=== PATIENT | female | born 1945 | race Caucasian/White ===

== ENCOUNTER 2018-05-12 12:36 | Inpatient (IN) | payer MEDICARE, MEDICAID ==
[~2018-05-12] VITALS: Ht 152.4 cm; Wt 56.2 kg
[2018-05-12 12:38] VITALS: BP 155/87
[2018-05-12] MEDS ORDERED: OMEPRAZOLE40 MG PO (12:39)
[2018-05-12] MEDS ORDERED: VITAMIN B-1100 M1 PO (12:40)
[2018-05-12] MEDS ORDERED: NORVASC2.5 MG PO (12:40)
[2018-05-12] MEDS ORDERED: VITAMIN D1000 UNI1 PO (12:40)
[2018-05-12] MEDS ORDERED: ASPIRIN81 M2 PO (12:40)
[2018-05-12] MEDS ORDERED: LASIX 40 MG TAB40 M2 PO (12:41)
[2018-05-12] MEDS ORDERED: NITROGLYCERIN0.4 MG SUBLING (12:41)
[2018-05-12] MEDS ORDERED: TYLENOL325 MG PO (12:42)
[2018-05-12] MEDS ORDERED: TRAMADOL 50 MG50 MG PO (12:42)
[2018-05-12] MEDS ORDERED: FLEXERIL PO (12:44)
[2018-05-12] MEDS ORDERED: FLONASE 0.05%50 MCG NASAL (12:45)
[2018-05-12] MEDS ORDERED: MUCINEX600 MG PO ×2 (12:45→12:48)
[2018-05-12] MEDS ORDERED: MIRALAX17 GM PO (12:45)
[2018-05-12] MEDS ORDERED: SINGULAIR 10 MG10 M1 PO (12:46)
[2018-05-12] MEDS ORDERED: DONEPEZIL HCL10 M1 PO (12:46)
[2018-05-12] MEDS ORDERED: LISINOPRIL5 MG PO ×2 (12:46)
[2018-05-12] MEDS ORDERED: ZANAFLEX2 MG PO (12:47)
[2018-05-12] MEDS ORDERED: PEPCID20 MG PO (12:47)
[2018-05-12] MEDS ORDERED: ARICEPT 5 MG TAB5 MG PO (12:47)
[2018-05-12] MEDS ORDERED: SYMBICORT160 MCG/4. INH (12:48)
[2018-05-12] MEDS ORDERED: KLOR-CON 1010 MEQ PO (12:48)
[2018-05-12] MEDS ORDERED: TUSSIN MUC100 MG/5 M PO (12:49)
[2018-05-12] MEDS ORDERED: CEFDINIR300 MG PO (12:49)
[2018-05-12] MEDS ORDERED: DUONEB (12:50)
[2018-05-12 13:06] LABS: HEMATOCRIT 40.9 % (37.0-47.0); HEMOGLOBIN 13.4 gm/dL (12.0-15.0); MCH 26.5 pg (26.0-34.0); MCHC 32.8 g/dL (28.0-37.0); MCV 80.9 fL (80.0-100.0); NUCLEATED RBCS 0 /100WBC; PLATELET COUNT* 189 thou/uL (150-400); RBC 5.06 mil/uL (4.20-5.00); RDW-CV 16.8 % (10.5-14.5); WBC 22.3 thou/uL (4.0-11.0)
[2018-05-12 13:16] LABS: PROTIME 10.3 Seconds (9.20-11.50)
[2018-05-12 13:26] LABS: URINE BILIRUBIN NEGATIVE (Negative); URINE BLOOD 1+ (Negative); URINE CLARITY SL CLOUDY; URINE COLOR YELLOW; URINE GLUCOSE-RANDOM NEGATIVE (Negative); URINE KETONES 1+ (Negative); URINE PROTEIN TRACE (Negative); URINE SPECIFIC GRAVITY 1.015 (1.005-1.030); URINE UROBILINOGEN 0.2 E.U./dl (0.2-1.0)
[2018-05-12 13:33] LABS: URINE LEUKOCYTES-REFLEX 3+ (Negative); URINE NITRITE-REFLEX POSITIVE (Negative)
[2018-05-12 13:33] LABS: ANION GAP 8 mmol/L (7-16); BUN 17 mg/dL (7-18); CALCIUM 8.6 mg/dL (8.5-10.1); CHLORIDE 99 mmol/L (98-107); CO2 27 mmol/L (21-32); GLUCOSE 109 mg/dL (70-99); POTASSIUM 4.2 mmol/L (3.5-5.1); SODIUM 134 mmol/L (136-145)
--- NOTE | 2018-05-12 13:35 | EKG ---
[place] [address] ELECTROCARDIOGRAM REPORT Name: IRASEMA SLOAN Room: [facility]#: [id number] Admission: 05/12/18 Attend Phys: Discharge: Date of : 45 Report #: [id number] THIS REPORT FOR: //name// [facility] ED Test Date: 2018-05-12 Test Time: 12:44:37 Pat Name: IRASEMAChiquis SLOAN Department: Room: Gender: F Staff Pharmacist: ROLAND : 1945 Requested By: Bossman Duran Order Number: [id number] MD: John Cyr Measurements Intervals [place] Rate: 145 P: 63 WV: 128 QRS: -51 QRSD: 74 T: 37 QT: 279 QTc: 434 Interpretive Statements Sinus tachycardia LAE, consider biatrial enlargement Left anterior fascicular block Abnormal R-wave progression, late transition ST depression, probably rate related No previous ECG available for comparison Electronically Signed On 05-12-2018 13:35:10 SURVEILLANCE MONITOR by John Cyr [email or web address] <ELECTRONICALLY SIGNED> By: John Cyr MD, [facility] 05/12/18 1335 1244 43 John Cyr MD, FAC /EPI
[2018-05-12 13:49] LABS: ALKALINE PHOSPHATASE 1012 U/L (46-116); LIPASE 70 U/L (73-393); NT-PRO BRAIN NAT PEPTIDE 460 pg/mL (<300); SGOT 52 U/L (15-37); SGPT 69 U/L (30-65); TOTAL BILIRUBIN 0.7 mg/dL (<0.1-1.0); TOTAL PROTEIN 6.5 g/dL (6.4-8.2); TROPONIN-I LEVEL <0.06 ng/mL (<0.06)
[2018-05-12 14:00] LABS: INFLUENZA A ANTIGEN None Detected (None Detect); INFLUENZA B ANTIGEN None Detected (None Detect)
[2018-05-12 14:13] LABS: SQUAMOUS 0-3 Few /LPF (0-3); URINE WBC-REFLEX >25 Many /HPF (0-5)
[2018-05-12 14:14] LABS: BACTERIA-REFLEX >30 Many /HPF (None Seen); CASTS None Seen /LPF (None Seen); CRYSTALS None Seen /LPF (None Seen); MUCUS None Seen strn/LPF (None Seen); URINE RBC 3-10 Few /HPF (0-2)
[2018-05-12 14:16] LABS: TRANSITIONAL EPITHEL CELL 0-3 Few /LPF (None Seen)
[2018-05-12 14:51] LABS: ABSOLUTE LYMPHOCYTES 2.7 thou/uL (0.8-5.3); ABSOLUTE MONOCYTES 0.4 thou/uL (0.0-1.2); ABSOLUTE NEUTROPHILS 19.2 thou/uL (1.6-8.1); ATYPICAL LYMPHS 1 %; GIANT PLATELETS RARE; METAMYELOCYTES 4 %; PLATELET ESTIMATE ADEQUATE
[2018-05-12 14:52] LABS: MICROCYTES 1+
[2018-05-12 14:53] LABS: POIKILOCYTOSIS Occasional
[2018-05-12 14:54] LABS: CLUMPED PLTS RARE; HYPOCHROMASIA Occasional
[2018-05-12 16:00] VITALS: BP 133/57
[2018-05-12 19:30] VITALS: BP 119/56
[2018-05-13] VITALS: BP 133/65
[2018-05-13 04:00] VITALS: BP 151/52
[2018-05-13 07:48] LABS: HEMATOCRIT 36.7 % (37.0-47.0); HEMOGLOBIN 11.7 gm/dL (12.0-15.0); MCH 26.4 pg (26.0-34.0); MCHC 31.9 g/dL (28.0-37.0); MCV 82.7 fL (80.0-100.0); MPV 8.9 fl. (7.2-11.1); NUCLEATED RBCS 0 /100WBC; PLATELET COUNT* 152 thou/uL (150-400); RBC 4.44 mil/uL (4.20-5.00); RDW-CV 17.7 % (10.5-14.5); WBC 23.1 thou/uL (4.0-11.0)
[2018-05-13 07:52] LABS: CALCIUM 7.6 mg/dL (8.5-10.1); CREATININE 0.9 mg/dL (0.6-1.3); POTASSIUM 3.8 mmol/L (3.5-5.1)
[2018-05-13 08:00] VITALS: BP 165/65
--- NOTE | 2018-05-13 08:18 | CON ---
[address] [address] CONSULTATION Name: IRASEMA SLOAN Room: [address] IN M.R.#: [id number] Admission: 05/12/18 Attend Phys: Neeta Cardoso Discharge: Date of : 45 Report #: [id number] THIS REPORT FOR: //name// CC: John Gambino DATE OF SERVICE: 05/12/2018 ATTENDING PHYSICIAN: Don Gambino DO. REASON FOR EVALUATION: Septicemia, complicated urinary tract infection. HISTORY OF PRESENT ILLNESS: Chart reviewed, patient examined. He was admitted to the Emergency Room from facility with complaints of profound encephalopathy. She apparently was known to be fairly normal mentation 2 hours prior. She is not able to give whole lot details of history. Appears to have some degree of fevers and chills. She does have back pain, although this has been chronic. She intermittently has poor appetite. Denies any nausea or diarrhea at this point. Per report, she was recently diagnosed with bronchitis, although it is noted she was not taking her antibiotics or other medicines, having found them behind her bed. She is at least moderately encephalopathic at this point. The evaluation did show marked pyuria. Chest x-ray showed no acute process. Influenza antigen for A and B was negative. White count was elevated at 22.3. She has been started empirically on vancomycin, levofloxacin. ALLERGIES: No known medical allergies. HOME MEDICATIONS: Include omeprazole, aspirin, amlodipine, cholecalciferol, thiamine, furosemide, nitroglycerin, acetaminophen, tramadol, cyclobenzaprine, fluticasone, guaifenesin, montelukast, lisinopril, donepezil, famotidine, tizanidine, budesonide. PAST MEDICAL HISTORY: Includes hypertension, history of coronary artery disease, chronic back pain. SOCIAL HISTORY: Disabled. FAMILY HISTORY: Noncontributory. REVIEW OF SYSTEMS: Somewhat limited, 10-point review of systems otherwise unremarkable with the exception noted in the history of present illness. PHYSICAL EXAMINATION: GENERAL: She appears chronically ill, undernourished. She is mildly encephalopathic. She does seem to be more lucid than earlier today. She is in [id number] [address] CONSULTATION Name: IRASEMA SLOAN Room: [address]#: [id number] Admission: 05/12/18 Attend Phys: Neeta Cardoso Discharge: Date of : 45 Report #: [id number] HEENT: Normocephalic. Extraocular muscles intact. She has got poor dentition. NECK: Supple. LUNGS: Scattered coarse breath sounds. HEART: Regular. I do not appreciate any murmur. ABDOMEN: Soft, nontender. There are no peritoneal signs. GENITOURINARY: Deferred. RECTAL: Deferred. LABORATORY DATA: Lactic acid 1.7. Chest x-ray shows some chronic changes, no acute process. Electrolytes: Sodium 134, potassium 4.2, chloride 99, bicarbonate is 27, BUN and creatinine 17 and 1.0, glucose of 109. AST 52, ALT of 69, alkaline phosphatase elevated at 1012. Lipase 70, albumin 3, total protein 6.5. Estimated GFR 54. Influenza antigen was negative. Urinalysis White count microscopic was greater than 25, greater than 30 bacteria. CBC: White count 22.7, H and H 13.4 and 40.9, platelets of 189, neutrophilia. ASSESSMENT AND PLAN: Complicated urinary tract infection. I suspect pyelonephritis. There is some indication may have positive blood cultures, although I have not been able to find documentation. These would have been drawn at the facility. We will try to get those results. At this point, there is no evidence of pneumonitis. She was recently diagnosed with bronchitis. I think a combination therapy should be adequate. Does have markedly elevated alkaline phosphatase. We will go ahead and do an ultrasound of the biliary tract to define what exactly that represents. Did discuss with the patient and her daughter. <ELECTRONICALLY SIGNED> By: Nick Powell MD 05/13/18 0818 1636 [id number] Powell MD /nt
[2018-05-13 08:47] LABS: ABSOLUTE LYMPHOCYTES 1.4 thou/uL (0.8-5.3); ABSOLUTE MONOCYTES 0.9 thou/uL (0.0-1.2); ABSOLUTE NEUTROPHILS 20.8 thou/uL (1.6-8.1); ATYPICAL LYMPHS 1 %; METAMYELOCYTES 1 %; PLATELET ESTIMATE ADEQUATE
[2018-05-13 12:00] VITALS: BP 125/65
[2018-05-13 16:00] VITALS: BP 125/59
[2018-05-14] VITALS: BP 130/67
[2018-05-14 04:00] VITALS: BP 169/75
[2018-05-14 08:00] VITALS: BP 188/77
[2018-05-14 10:07] LABS: HEMOGLOBIN 12.9 gm/dL (12.0-15.0); MCH 26.8 pg (26.0-34.0); MCV 81.1 fL (80.0-100.0); MPV 9.5 fl. (7.2-11.1); NUCLEATED RBCS 0 /100WBC; PLATELET COUNT* 178 thou/uL (150-400); RBC 4.81 mil/uL (4.20-5.00); RDW-CV 17.2 % (10.5-14.5); WBC 14.4 thou/uL (4.0-11.0)
[2018-05-14 10:20] LABS: CALCIUM 8.5 mg/dL (8.5-10.1); CREATININE 0.8 mg/dL (0.6-1.3); POTASSIUM 3.5 mmol/L (3.5-5.1)
[2018-05-14 11:15] LABS: ABSOLUTE LYMPHOCYTES 1.6 thou/uL (0.8-5.3); ABSOLUTE MONOCYTES 1.6 thou/uL (0.0-1.2); ABSOLUTE NEUTROPHILS 11.2 thou/uL (1.6-8.1); ANISOCYTOSIS 1+; PLATELET ESTIMATE ADEQUATE; POIKILOCYTOSIS 1+
[2018-05-14 11:30] VITALS: BP 138/66
[2018-05-14 15:57] VITALS: BP 146/69
[2018-05-14 20:00] VITALS: BP 164/80
[2018-05-15] VITALS: BP 159/73
[2018-05-15 04:00] VITALS: BP 115/76
[2018-05-15 08:00] VITALS: BP 187/77
[2018-05-15] MEDS ORDERED: CEFDINIR300 MG PO (08:58)
[2018-05-15 11:22] VITALS: BP 144/79
[2018-05-15 16:00] VITALS: BP 130/69
[2018-05-15 19:10] VITALS: BP 122/65
[2018-05-16] VITALS: BP 135/67
[2018-05-16 04:00] VITALS: BP 117/65
[2018-05-16 08:29] LABS: HEMOGLOBIN 12.4 gm/dL (12.0-15.0); MCH 26.9 pg (26.0-34.0); MCHC 33.5 g/dL (28.0-37.0); MCV 80.3 fL (80.0-100.0); MPV 9.1 fl. (7.2-11.1); NUCLEATED RBCS 0 /100WBC; PLATELET COUNT* 191 thou/uL (150-400); RBC 4.61 mil/uL (4.20-5.00); RDW-CV 16.6 % (10.5-14.5); WBC 8.3 thou/uL (4.0-11.0)
[2018-05-16 08:41] LABS: ALBUMIN 2.1 g/dL (3.4-5.0); CALCIUM 8.4 mg/dL (8.5-10.1); CREATININE 0.8 mg/dL (0.6-1.3); POTASSIUM 3.5 mmol/L (3.5-5.1); TOTAL BILIRUBIN 0.7 mg/dL (<0.1-1.0); TOTAL PROTEIN 5.7 g/dL (6.4-8.2)
[2018-05-16 08:50] VITALS: BP 118/56
[2018-05-16 09:29] LABS: ABSOLUTE LYMPHOCYTES 1.2 thou/uL (0.8-5.3); ABSOLUTE MONOCYTES 1.5 thou/uL (0.0-1.2); ABSOLUTE NEUTROPHILS 5.6 thou/uL (1.6-8.1); ATYPICAL LYMPHS 6 %; METAMYELOCYTES 2 %
[2018-05-16 09:32] LABS: PLATELET ESTIMATE ADEQUATE
[2018-05-16 12:17] VITALS: BP 127/55
[2018-05-16 16:25] VITALS: BP 114/56
[2018-05-16 19:15] VITALS: BP 136/70
[2018-05-17] VITALS: BP 143/56
[2018-05-17 04:00] VITALS: BP 130/61
[2018-05-17 13:06] VITALS: BP 106/58
[2018-05-17] MEDS ORDERED: CEFDINIR300 MG PO (15:25)
[2018-05-17] MEDS ORDERED: LEVAQUIN 750 M750 MG PO (15:28)
[2018-05-17 15:30] VITALS: BP 106/58
== END 2018-05-17 16:30 | DRG 871 ==
LOC: M.ERS 12:36 → M.TBA-ER 13:44 → M.2W 13:44
PROVIDERS: Family Medicine; Internal Medicine; ADMIT Internal Medicine
DX: A41.9 Sepsis, unspecified organism (principal); G93.41 Metabolic encephalopathy; J18.9 Pneumonia, unspecified organism; J96.01 Acute respiratory failure with hypoxia; N39.0 Urinary tract infection, site not specified; B96.5 Pseudomonas (aeruginosa) (mallei) (pseudomallei) as the cause of diseases classified elsewhere; I10 Essential (primary) hypertension; I25.10 Atherosclerotic heart disease of native coronary artery without angina pectoris; J40 Bronchitis, not specified as acute or chronic; M54.9 Dorsalgia, unspecified; M19.90 Unspecified osteoarthritis, unspecified site; R74.8 Abnormal levels of other serum enzymes; Z79.82 Long term (current) use of aspirin; Z79.899 Other long term (current) drug therapy; Z91.048 Other nonmedicinal substance allergy status

== ENCOUNTER 2018-06-12 08:06 | Inpatient (IN) | payer MEDICARE, MEDICAID ==
[~2018-06-12] VITALS: Ht 167.6 cm; Wt 66.0 kg
[~2018-06-12 08:06] MED LIST: ARICEPT 5 MG TAB5 MG PO; ASPIRIN81 M2 PO; CEFDINIR300 MG PO; DONEPEZIL HCL10 M1 PO; DUONEB; FLEXERIL PO; FLONASE 0.05%50 MCG NASAL; KLOR-CON 1010 MEQ PO; LASIX 40 MG TAB40 M2 PO; LEVAQUIN 750 M750 MG PO; LISINOPRIL5 MG PO; MIRALAX17 GM PO; MUCINEX600 MG PO; NITROGLYCERIN0.4 MG SUBLING; NORVASC2.5 MG PO; OMEPRAZOLE40 MG PO; PEPCID20 MG PO; SINGULAIR 10 MG10 M1 PO; SYMBICORT160 MCG/4. INH; TRAMADOL 50 MG50 MG PO; TUSSIN MUC100 MG/5 M PO; TYLENOL325 MG PO; VITAMIN B-1100 M1 PO; VITAMIN D1000 UNI1 PO; ZANAFLEX2 MG PO
[2018-06-12 08:10] VITALS: BP 142/74
[2018-06-12] MEDS ORDERED: SPIRONOLACTONE25 M1 PO (08:14)
[2018-06-12 08:53] LABS: HEMATOCRIT 43.1 % (37.0-47.0); MCHC 32.4 g/dL (28.0-37.0); MCV 80.3 fL (80.0-100.0); MPV 11.1 fl. (7.2-11.1); NUCLEATED RBCS 0 /100WBC; PLATELET COUNT* 125 thou/uL (150-400); RBC 5.37 mil/uL (4.20-5.00); RDW-CV 18.4 % (10.5-14.5); WBC 11.6 thou/uL (4.0-11.0)
[2018-06-12 09:03] LABS: APTT 21.8 Seconds (25.0-31.3); PROTIME 10.7 Seconds (9.20-11.50)
[2018-06-12 09:12] LABS: ALBUMIN 2.3 g/dL (3.4-5.0); ALKALINE PHOSPHATASE 851 U/L (46-116); ANION GAP 11 mmol/L (7-16); BUN 36 mg/dL (7-18); CALCIUM 8.5 mg/dL (8.5-10.1); CHLORIDE 101 mmol/L (98-107); CO2 25 mmol/L (21-32); CREATININE 1.4 mg/dL (0.6-1.3); GLUCOSE 127 mg/dL (70-99); LIPASE 54 U/L (73-393); MAGNESIUM 2.2 mg/dL (1.8-2.4); NT-PRO BRAIN NAT PEPTIDE 3026 pg/mL (<300); POTASSIUM 4.4 mmol/L (3.5-5.1); SGOT 58 U/L (15-37); SGPT 33 U/L (30-65); SODIUM 137 mmol/L (136-145); TOTAL BILIRUBIN 1.3 mg/dL (<0.1-1.0); TOTAL PROTEIN 5.4 g/dL (6.4-8.2); TROPONIN-I LEVEL <0.06 ng/mL (<0.06)
[2018-06-12 10:11] LABS: ABSOLUTE LYMPHOCYTES 0.8 thou/uL (0.8-5.3); ABSOLUTE NEUTROPHILS 9.7 thou/uL (1.6-8.1); HYPOCHROMASIA 1+; PLATELET ESTIMATE DECREASED
[2018-06-12 10:12] LABS: ANISOCYTOSIS 1+; POIKILOCYTOSIS 1+; POLYCHROMASIA Occasional; TARGET CELLS Occasional
--- NOTE | 2018-06-12 10:42 | NUR ---
PT TRANSFERRED FROM ER BED TO HOSPITAL BED
[2018-06-12 12:06] VITALS: BP 144/72
[2018-06-12 15:46] VITALS: BP 136/79
--- NOTE | 2018-06-12 19:04 | NUR ---
RECEIVED REPORT AND ASSUMED CARE AT 1255. PT TRANSPORTED FROM ED TO ROOM 230. VSS. PT MED SURGE. ASSESSMENT COMPLETED CHARTED. ADMISSION COMPLETED BY NURSING. PT ORIENTATED TO ROOM, CALL LIGHT, FALL POLICY. WOUND PICTURES TAKEN AND PLACED ON CHART. BED LOCKED IN LOWEST POSITION, CALL LIGHT WITHIN REACH, BED ALARM ON. POSITION CHANGED EVERY TWO HOURS, HEELS OFF LOADED BILATERALLY. HOURLY ROUNDING COMPLETED AND ALL NEEDS MET.
[2018-06-12 20:00] VITALS: BP 137/81
[2018-06-13] VITALS (53 sets, daily range): BP systolic 72–182; BP diastolic 20–120
--- NOTE | 2018-06-13 04:40 | NUR ---
PT ALERT FORGETFUL AT TIMES. IN DROPLET PRECAUTIONS FOR RSV 3 WKS AGO DX. SHIRAZ FOR WOUNDS TO LABIA ERIN LEGS AND L&R GREAT TOES. O2 AT 2 LITERS NC. BLOOD CLTS + FOR GRAM NEG RODS. DR AMANDA NOTIFIED. CEFIPIME ORDERED.
--- NOTE | 2018-06-13 06:07 | NUR ---
PT BECAME TACHYPNEIC WITH CRACKLES AND COURSE. DR BYERS NOTIFIED. DC IVF. STAT LASIX AND PCXRAY. IVF DC'D BMP ALREADY ORDERED.
--- NOTE | 2018-06-13 07:51 | CON ---
[address] [address] CONSULTATION Name: IRASEMA SLOAN Room: [address] IN M.R.#: [id number] Admission: 06/12/18 Attend Phys: Josué Dent MD Discharge: Date of : 45 Report #: [id number] THIS REPORT FOR: //name// CC: Josué Lucia DATE OF SERVICE: 06/12/2018 INFECTIOUS DISEASE CONSULTATION ATTENDING PHYSICIAN: Dr. Dent. REASON FOR EVALUATION: Pneumonitis. HISTORY OF PRESENT ILLNESS: Chart reviewed, patient examined. This is a 73-year-old woman known to myself, who was hospitalized in April of this year with septicemia secondary to complicated urinary tract infection due to Pseudomonas aeruginosa. Post-discharge, she was in a facility, had apparently been complaining about worsening dyspnea and the time prior to her transfer was found to have hypoxemia on 2 liters with low sats of 88%. She reportedly had a history of RSV recently. On questioning now, denies any shortness of breath. She does have a cough that appears to be somewhat coarse, although she denies feeling short of breath, saturations have been kind of marginal on 4 liters of oxygen. She denies significant abdominal related complaints. She has had some anorexia, poor p.o. intake and believes some weight loss in the past month. She has not had fevers that she is aware of. Evaluation including imaging of her chest, which showed question of pneumonitis. Lactic acid was elevated at 4.1 as well. She has been placed empirically on therapy with levofloxacin. ALLERGIES: None known. MEDICATIONS: Include Levaquin, spironolactone, furosemide, enoxaparin, famotidine, montelukast, Ipratropium/albuterol inhaler, methylprednisolone, cyclobenzaprine, tramadol, nitroglycerin. PAST MEDICAL HISTORY: Includes hypertension, atherosclerotic coronary artery disease, chronic back pain. SOCIAL AND FAMILY HISTORY: Available in chart. REVIEW OF SYSTEMS: Ten-point review of system otherwise unremarkable with the exception noted in the history of present illness. PHYSICAL EXAMINATION: GENERAL: She appears chronically ill. I think she has actually lost weight since previous hospitalization. Undernourished. She is pleasant, cooperative, [place] [address] CONSULTATION Name: MIRANDA SLOANChiquis Hernández Room: [address]#: [id number] Admission: 06/12/18 Attend Phys: Josué Dent MD Discharge: Date of : 45 Report #: [id number] perhaps mildly encephalopathic. VITAL SIGNS: Temperature 97.5, pulse 106, respiration rate 22, blood pressure 144/76, weight is listed as 140 pounds. SKIN: Warm. HEENT: Remarkable for poor dentition. Normocephalic. Extraocular muscles intact. NECK: Supple. LUNGS: Scattered coarse breath sounds. HEART: Regular. I do not appreciate a murmur. ABDOMEN: Soft, mildly distended. There is no significant tenderness nor peritoneal signs. GENITOURINARY AND RECTAL: Deferred. LABORATORY DATA: As described above. Lactic acid on 2 occasions 4.1. CBC: White count of 11.6, H and H 14.0/43.1, platelets of 125. Chest x-ray, left mid to lower lung opacities. Electrolytes: Sodium 137, potassium 4.4, chloride 101, bicarbonate is 25, anion gap of 11, BUN and creatinine 36 and 1.4, lipase of 54, AST of 58, ALT of 33. Albumin of 2.3, total protein of 5.4. ASSESSMENT AND PLAN: Pneumonitis. The patient likely has some degree of immunocompromise at this point. We will add some better Gram-positive coverage. There is question of a secondary bacterial pneumonitis in the setting of previous viral etiology. Also, we will check CT of the chest to better define, I am still concerned that she may have some underlying occult process that seems to be progressive given the weight loss and overall clinical deterioration. <ELECTRONICALLY SIGNED> By: Nick Powell MD 06/13/18 0751 1209 [id number] Powell MD /nt
[2018-06-13 09:25] LABS: BE -18.5 mmol/L (-2 to +3); PO2 107.1 mmHg (75.0-100.0)
--- NOTE | 2018-06-13 09:32 | EKG ---
[place] [address] ELECTROCARDIOGRAM REPORT Name: IRASEMA SLOAN Room: [address] ADM IN M.R.#: [id number] Admission: 06/12/18 Attend Phys: Josué Dent MD Discharge: Date of : 45 Report #: [id number] THIS REPORT FOR: //name// [facility] ED Test Date: 2018-06-12 Test Time: 08:11:12 Pat Name: IRASEMA LUTHER Department: Room: [facility] Gender: F Dag Sprayer: [place] BRIAN : 1945 Requested By: Bossman Duran Order Number: [id number] MD: John Cyr Measurements Intervals [place] Rate: 121 P: 51 DC: 142 QRS: -45 QRSD: 93 T: 115 QT: 309 QTc: 439 Interpretive Statements Sinus tachycardia Atrial premature complex Left anterior fascicular block Abnormal R-wave progression, early transition Borderline repolarization abnormality Compared to ECG 05/12/2018 12:44:37 Atrial premature complex(es) now present Electronically Signed On 06-13-2018 9:32:04 DISTANCE LEARNING PROGRAM COORDINATOR by John Cyr [email or web address] <ELECTRONICALLY SIGNED> By: John Cyr MD, FACC 06/13/18 0932 0 0 John Cyr MD, FAC /EPI
--- NOTE | 2018-06-13 10:13 | NUR ---
ASSUMED CARE OF PT THIS AM AROUND 0715- UPON ASSESSMENT PT NOTED TO BE RESTING IN BED- O2 SAT NOTED IN 50-60'S ON 2L VIA NC- O2 BUMPED UP TO 15L HF WITH IMPORVEMENT TO MID 80'S THEN FALLING IN MID 70'S- NRB APPLIED WITH O2 SAT 88-90%- NOTIFIED WITH ORDERS FOR 40MG LASIX X1- ABG'S, AND LACTIC - PCO2 CRITICAL AT 6.990, ORDERS RECIEVIED TO GIVEN SOLU-MED 62.5MG X1 AND TO TRANSFER TO ICU FOR INTUBATION- REPORT GIVEN TO ELLY WALTER IN ICU TO ASSUME CARE- PT TRANSFERED TO ROOM 103 WITH ALL BELONGINGS VIA BED- ALL QUESTIONS AND CONCERNS ADDRESSED
[2018-06-13 11:02] LABS: PCO2 56.4 mmHg (35.0-45.0)
[2018-06-13 13:43] LABS: BE -10.2 mmol/L (-2 to +3); PCO2 46.8 mmHg (35.0-45.0)
[2018-06-13 13:44] LABS: PO2 218.4 mmHg (75.0-100.0); pH 7.196 (7.340-7.450)
--- NOTE | 2018-06-13 14:36 | NUR ---
RIGHT BASILIC VESSEL ACCESSED FOR TRIPLE LUMEN PICC. LINE PRE-TRIMMED TO 37CM AND ADVANCED TO THE ZERO JORGE LUIS WITH NO REISISTANCE MET. UPPER ARM CIRCUMFERENCE ABOVE INSERTION SITE=10". SHERLOCK AND 3CG CONFIRMATION OF TIP TERMINATION AT THE CAVOATRIAL JUNCTION. GUIDEWIRE REMOVED, LINE FLUSHED AND REPORT GIVEN TO NIECY WALTER.
[2018-06-13 15:07] LABS: URINE BILIRUBIN NEGATIVE (Negative); URINE BLOOD 1+ (Negative); URINE CLARITY CLEAR; URINE COLOR YELLOW; URINE GLUCOSE-RANDOM NEGATIVE (Negative); URINE KETONES NEGATIVE (Negative); URINE LEUKOCYTES-REFLEX NEGATIVE (Negative); URINE NITRITE-REFLEX NEGATIVE (Negative); URINE PROTEIN TRACE (Negative); URINE SPECIFIC GRAVITY 1.025 (1.005-1.030); URINE UROBILINOGEN 0.2 E.U./dl (0.2-1.0)
[2018-06-13 15:08] LABS: CALCIUM 6.9 mg/dL (8.5-10.1); CREATININE 1.4 mg/dL (0.6-1.3); POTASSIUM 4.9 mmol/L (3.5-5.1)
--- NOTE | 2018-06-13 15:09 | NUR ---
WOUND CARE NOTE: CONSULT RECIEVED FOR MULTIPLE WOUNDS/BLACK TOES. PATIENT PRESENTS WITH DARK DISCOLORATION TO THE FIRST TOE ON THE LEFT FOOT AND 1-3RD TOES ON THE RIGHT. BILATERAL FEET ARE COLD TO TOUCH, MOTTLED. UNABLE TO PALPATE OR DOPPLE PEDAL PULSES, ARTERIAL ULTRASOUNDS ARE ORDERED. PAINTED THE DISCOLORATION WITH BETADINE AND ALLOWED TO DRY. PATIENT HAS EVOLVING DEEP TISSUE INJURY TO HER SACRAL AREA MEASURING 6X3X0.1. MOIST YELLOW WOUND BED TO APPROXIMATELY 75% OF WOUND BED. 25% OF WOUND BED MOIST, PINK, NON-GRANULAR TISSUE. APPLIED BARRIER OINTMENT WITH ANTIFUNGAL AT THIS TIME. POTENTIALLY A FUNGAL OR EVEN A HERPATIC COMPONENT. BILATERAL LABIA MAJORA, PERINEUM, AND CONSTANZA-ANAL AREA WITH FULL THICKNESS LESIONS. NUMEROUS SITES. PALE/YELLOW WOUND BEDS. FRIABLE TISSUE. DRAINING SANGUINEOUS DRAINAGE. TENDER TO TOUCH PATIENT PULLS AWAY DURING CLEANSING. OBTAINED HERPES CULTURES. APPLIED BARRIER OINTMENT WITH ANTIFUNGAL IN CASE OF FUNGAL COMPONENT WELL. RIGHT HEEL WITH DRY SCAB. NUMEROUS OTHER DRY LESIONS TO BILATERAL LEGS. RECOMMEND LEAVING OPEN TO AIR AT THIS TIME. RECOMMEND TURN Q2 HOURS-SIDE TO SIDE LOW AIR LOSS MATTRESS-IN PLACE OFFLOADING BOOTS LIMIT LAYERS OF LINEN UNDER PATIENT.
--- NOTE | 2018-06-13 15:35 | NUR ---
RECEIVED PATIENT FROM TELEMETRY UNIT DUE TO INCREASED RR WITH TROUBLE BREATHING. PATIENT PLACED ON BIPAP AND COULD NOT TOLERATE AND TRANSFERED TO THE ICU. UPON ARRIVAL IN ICU, PATIENT WAS INTUBATED. ON ASSESSMENT, PATIENT HAS COLD BLE WITH BLACK TOES. DOPPLER USED AND NO PULSES HEARD ON BLE - VASCULAR CONSULTED AND NOTIFIED. OFFICE RN ROUNDED ON PATIENT AND ASSISTED WITH WOUND CARE AND SUGGESTIONS. WITH SEDATION PATIENT BECAME HYPOTENSIVE AND HAD TO START LEVOPHED DRIP PER PHYSICIAN ORDERS. PATIENTS TEMPERATURE WAS 95.9F AND EXTREMITIES COOL TO THE TOUCH - GIRISH HUGGER APPLIED. FAMILY AT BEDSIDE - ASKING APPROPRIATE QUESTIONS AND UPDATED ON PATIENTS CONDITION. FAMILY REQUESTED TO SPEAK WITH DR. RENE - SPOKE WITH DR. RENE AND DR. PACE.
[2018-06-13 16:01] LABS: SQUAMOUS 0-3 Few /LPF (0-3)
[2018-06-13 16:02] LABS: URINE RBC None Seen /HPF (0-2); URINE WBC-REFLEX 0-5 Rare /HPF (0-5)
[2018-06-13 16:03] LABS: CASTS None Seen /LPF (None Seen); CRYSTALS None Seen /LPF (None Seen); MUCUS 0-3 Light strn/LPF (None Seen); YEAST-REFLEX Present (None Seen)
--- NOTE | 2018-06-13 16:15 | NUR ---
PT KNOWN TO CASE MGT FROM PREVIOUS ADMISSION. 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 PT TRANSFERRED TO ICU AND INTUBATED THIS MORNING. SPOKE WITH SALINA AT [facility] TO UPDATE HER ON PT'S CONDITION.
--- NOTE | 2018-06-13 18:48 | NUR ---
ASSUMED CARE OF PATIENT CT DONE LEVO AT 5 MCGS. REMAINS ON VENT. SODIUM ELEVATED FLUIDS CHANGED TO D5W WITH BICARB. FAMILY INFORMED OF PT CHANGES WILL CHECK ON PT IN AM.
[2018-06-13 21:23] LABS: BE -7.8 mmol/L (-2 to +3); PCO2 33.9 mmHg (35.0-45.0); PO2 88.9 mmHg (75.0-100.0); pH 7.324 (7.340-7.450)
[2018-06-14] VITALS (44 sets, daily range): BP systolic 44–151; BP diastolic 16–121
--- NOTE | 2018-06-14 06:20 | NUR ---
Pt limp, lethargic. BP labile even while on Levophed gtt; which has been titrated up and down during shift. BP ranging from 90s/20s to 160s/120s. RR mid- to upper-20s, and appear agonal. Toes bilat either black or dusky. Breath snds clear. HR 120s. Blood-tinged drainage leaking from LUE at AC space just below BP cuff. Just 250 ml urine per bob for shift. Pt appears frail and sickly, and not responding to painful stimuli. Will continue to monitor.
[2018-06-14 07:53] LABS: HEMATOCRIT 40.2 % (37.0-47.0); HEMOGLOBIN 12.3 gm/dL (12.0-15.0); MCH 25.7 pg (26.0-34.0); MCHC 30.5 g/dL (28.0-37.0); MCV 84.3 fL (80.0-100.0); MPV 10.7 fl. (7.2-11.1); NUCLEATED RBCS 1 /100WBC; PLATELET COUNT* 114 thou/uL (150-400); RBC 4.77 mil/uL (4.20-5.00); RDW-CV 19.2 % (10.5-14.5); WBC 26.6 thou/uL (4.0-11.0)
--- NOTE | 2018-06-14 07:55 | CON ---
[address] [address] CONSULTATION Name: LUTHERIRASEMA K Room: [address] ADM IN M.R.#: [id number] Admission: 06/12/18 Attend Phys: Josué Dent MD Discharge: Date of : 45 Report #: [id number] THIS REPORT FOR: //name// CC: Seth Lucia MD DATE OF SERVICE: 06/13/2018 PULMONARY CONSULTATION: ATTENDING PHYSICIAN: Dr. Seth Rao. The patient is now in the ICU bed 3. She was in room 230. INDICATION FOR CONSULTATION: Acute hypoxic respiratory failure, sepsis, metabolic acidosis, COPD. CLINICAL SUMMARY: The patient is a 73-year-old female, remote smoker with multiple medical problems. She was admitted to the hospital yesterday on 06/12/2018 with a history of being short of breath. Her O2 sats were a little bit low on 2 liters at the long-term. They were 85-88. She supposedly had a history of RSV infection recently, not really sure how well that is documented. She had increasing cough, shortness of air. She had increasing abdominal complaints. She had some poor discoloration of her toes, left greater than right and she was not perfusing well. She was started on 2 liters when she was in the hospital up on the floor then increased to 100% nonrebreather this morning. She had metabolic and respiratory acidosis, was transferred to the ICU. I saw her on BiPAP. She was doing poorly. We continued with the decision to get her intubated. She has markedly necrotic and carious teeth also. She denies any history of aspiration, but she is currently confused and encephalopathic from her infection. She has some cough and some purulent sputum. No definite fever or chills noted. IMMUNIZATION STATUS: Not noted. ALLERGIES: She has no known medical allergies, QUESTIONABLY TO ADHESIVE TAPE. PAST MEDICAL HISTORY: Includes hypertension, COPD. She has kyphosis and chronic back pain and atherosclerotic coronary artery disease. Also, has some peripheral vascular disease and bronchiectasis. OUTPATIENT MEDICATIONS: Included IV and p.o. Levaquin, spironolactone, furosemide, enoxaparin, famotidine, montelukast, DuoNeb treatments 4 [place] [address] CONSULTATION Name: IRASEMA SLOAN Room: [address] IN [facility]#: [id number] Admission: 06/12/18 Attend Phys: Josué Dent MD Discharge: Date of : 45 Report #: [id number] day, methylprednisolone 62.5 mg IV q. 8 hours, Soma q. 8 hours, tramadol 50 mg t.i.d., nitroglycerin p.r.n. She had one dose of vancomycin added here at this time. Bicarb was ordered and has not been given yet. FAMILY HISTORY: Negative for premature cardiopulmonary disease. SOCIAL HISTORY: She lives in a long-term. She is a remote smoker. Her daughter, Issac, is the durable power of business attorney. She has about a 30- or 40-pack year history of smoking. She quit several years ago. She denies any alcohol or illicit drug use. REVIEW OF SYSTEMS: A 14-point review of systems shows some complicated urinary tract infections previously with Pseudomonas aeruginosa. No recent urinary tract infections noted. Again, hypertension, coronary artery disease as noted. She has had chronic back pain with her kyphoscoliosis and 3 back surgeries in the past. PHYSICAL EXAMINATION: GENERAL: This is a 73-year-old female, ill appearing, who appears to be very tired and in respiratory failure. She can answer me with 1 or 2 words question saying she is short of breath. VITAL SIGNS: Blood pressure is mildly soft at 90/50, heart rate is 110, respirations initially were 24-28. On the BiPAP, they were 16-20, still somewhat labored. Her volume is around 350-400. Sats are running anywhere between 92 and 100% on 100% BiPAP at 12/6. Anesthesia was on their way. HEENT: Mucous membranes appear dry. She has periodontal disease and carious teeth, upper and lower and most of her teeth look necrotic. NECK: Supple, without nodes. No increase in jugular venous pressure. CHEST: Shows moderate kyphosis. She has poor inspiratory effort and bibasilar crackles, left greater than right, some expiratory wheezes noted. CARDIOVASCULAR: Sinus tachycardia with a heart rate of 110. ABDOMEN: Soft, without masses or megaly. EXTREMITIES: Cool to touch. Peripheral pulses are 1+. She has blue cyanotic toes on the left foot. Her left great toe, left second toe and third toe appear to be cyanotic. Nontender to touch. Right toes appear to be somewhat dusky, but less so than left. Again, peripheral pulses 0-1+ on both lower extremities, no edema is noted. Some chronic venous stasis changes noted. She was moving all extremities to commands, but she was moving all fours weakly. LABORATORY DATA: From this morning, 06/13/2018, hemoglobin is 13, white count 15,300, platelets are 133,000. She has 20% bands on previous CBC with left shifted differential, platelets were decreased. Sodium today was 144, potassium is 4.1, chloride 108, BUN is 28, creatinine is 1.0, glucose is 118, calcium is 8.0, total bilirubin is 1.2. AST is elevated at 68, 37 is normal. ALT is normal at 34, alkaline phosphatase is elevated at 942. Albumin is 2.0. ABGs this morning at about 9:15 on 100% nonrebreather mask showed a pO2 of 107, pH of [facility] [address] [place] [address] CONSULTATION Name: LUTHERIRASEMA K Room: [address] IN [facility]#: [id number] Admission: 06/12/18 Attend Phys: Josué Dent MD Discharge: Date of : 45 Report #: [id number] 6.99, pCO2 is 56, bicarbonate is 13 and sat was 93%. Chest x-ray shows COPD, hyperinflation, left lower lobe infiltrate. She has had a history of bronchiectasis in the past. Serology for mycoplasma is pending. MRSA is negative or pending at this time. Coags were normal. Urinalysis is pending. IMPRESSION: 1. Acute respiratory failure, multifactorial. 2. Left lower lobe pneumonia with gram-negative yesica bacteremia on 1 out of 2 blood cultures. ID is pending. 3. Peripheral vascular disease with poor perfusion. 4. Sepsis syndrome, probably related to pneumonia and bacteremia. 5. Chronic obstructive pulmonary disease with hypoxemia and left lower lobe pneumonia with bronchiectasis. 6. Significant kyphosis with restrictive lung disease and neuromuscular weakness and decrease in chest wall function and excursion. 7. Previous urinary tract infections with Pseudomonas aeruginosa. 8. Possible respiratory syncytial virus infection in the past. PLAN: Continue cover with steroids for sepsis syndrome, fluid bolus and followup lactic acid, which was elevated at 7. I will repeat labs this afternoon and make sure acidosis is improving. We will attempt hyper-ventilator on the ventilator and see if we can improve her oxygenation and her blood gas status. Continue with antibiotics, steroids and IV fluids. Again, may need an upper GI or at least an ultrasound or CT of the abdomen at some point in time to rule out gallstones and gallstone cholangitis and extra biliary duct obstruction and biliary duct abnormalities. Prognosis is quite guarded at this time and this has been a 37-minute critical care consult. <ELECTRONICALLY SIGNED> By: Dale Kelly MD 06/14/18 0755 1222 [id number] Kelly MD /nate
[2018-06-14 08:07] LABS: BE -13.6 mmol/L (-2 to +3); PCO2 VENOUS 52.4 mmHg (41.0-51.0)
[2018-06-14 08:19] LABS: ABSOLUTE MONOCYTES 0.3 thou/uL (0.0-1.2); ABSOLUTE NEUTROPHILS 24.7 thou/uL (1.6-8.1); ANISOCYTOSIS 1+; ATYPICAL LYMPHS 6 %; ATYPICAL MONONUCLEARS 1 %; METAMYELOCYTES 1 %; PLATELET ESTIMATE ADEQUATE
[2018-06-14 08:22] LABS: BE -17.2 mmol/L (-2 to +3); PO2 107.7 mmHg (75.0-100.0)
[2018-06-14 08:25] LABS: pH 7.097 (7.340-7.450)
[2018-06-14 08:25] LABS: ALBUMIN 1.3 g/dL (3.4-5.0); CREATININE 2.1 mg/dL (0.6-1.3); POTASSIUM 5.4 mmol/L (3.5-5.1); TOTAL BILIRUBIN 1.6 mg/dL (<0.1-1.0); TOTAL PROTEIN 3.4 g/dL (6.4-8.2)
[2018-06-14 08:46] LABS: CALCIUM 5.9 mg/dL (8.5-10.1)
[2018-06-14 10:29] LABS: ABSOLUTE LYMPHOCYTES 1.6 thou/uL (0.8-5.3)
[2018-06-14 14:07] LABS: BE -4.1 mmol/L (-2 to +3); PCO2 36.7 mmHg (35.0-45.0); PO2 121.2 mmHg (75.0-100.0)
--- NOTE | 2018-06-14 14:46 | 2DMMODE ---
[place] [address] 2 D/M-MODE ECHOCARDIOGRAM Name: IRASEMA SLOAN Room: [address] IN [facility]#: [id number] Admission: 06/12/18 Attend Phys: Josué Dent, Discharge: Date of : 45 Date of Service: 06/14/18 1446 Report #: [id number] THIS REPORT FOR: //name// APPROVED REPORT Study performed: 06/14/2018 10:50:40 EXAM: Comprehensive 2D, Doppler, and color-flow Echocardiogram Patient Location: In-Patient Room #: 003 Status: routine BSA: 1.69 HR: 116 bpm BP: 130/77 mmHg Rhythm: NSR Other Information Study Quality: Good Indications Dyspnea shock 2D Dimensions IVSd: 8.90 (7-11mm) LVOT Diam: 18.54 (18-24mm) LVDd: 37.06 mm PWd: 9.18 (7-11mm) Ascending Ao: 31.82 (22-36mm) LVDs: 30.55 (25-40mm) Aortic Root: 30.60 mm Volumes Left Atrial Volume (Systole) LA ESV Index: 20.60 mL/m2 Aortic Valve AoV Peak Mamadou.: 1.40 m/s AO Peak Gr.: 7.82 mmHg LVOT Max P.51 mmHg AO Mean Gr.: 5.11 mmHg LVOT Mean P.07 mmHg LVOT Max V: 1.17 m/s AO V2 VTI: 19.47 cm LVOT Mean V: 0.84 m/s BUDDY (VTI): 2.51 cm2 LVOT V1 VTI: 18.11 cm Mitral Valve E/A Ratio: 0.94 MV Decel. Time: 108.34 [place] [address] 2 D/M-MODE ECHOCARDIOGRAM Name: IRASEMA SLOAN Room: [address] IN .R.#: [id number] Admission: 06/12/18 Attend Phys: Josué Dent, Discharge: Date of : 45 Date of Service: 06/14/18 1446 Report #: [id number] MV E Max Mamadou.: 0.85 m/s MV PHT: 31.42 ms MVA (PHT): 7.00 cm2 TDI E/Lateral E': 8.50 E/Medial E': 8.50 Medial E' Mamadou.: 0.10 m/s Lateral E' Mamadou.: 0.10 m/s Pulmonary Valve PV Peak Mamadou.: 0.82 m/s PV Peak Gr.: 2.68 mmHg Tricuspid Valve RAP Estimate: 5.00 mmHg TR Peak Gr.: 35.48 mmHg RVSP: 40.00 mmHg PA Pressure: 40.00 mmHg Left Ventricle The left ventricle is normal size. The mid to apical anterior anteroseptal wall and apex are akinetic. There is normal left ventricular wall thickness. Left ventricular systolic function is moderately decreased. LVEF is 35-40%. Transmitral Doppler flow pattern suggests impaired LV relaxation. Right Ventricle The right ventricle is normal size. The right ventricular systolic function is normal. Atria The left atrium size is normal. The right atrium size is normal. Aortic Valve Mild aortic valve sclerosis. Mild aortic regurgitation. There is no aortic valvular stenosis. Mitral Valve There is mitral annular calcification. There is no mitral valve regurgitation noted. No evidence of mitral valve stenosis. Tricuspid Valve The tricuspid valve is normal in structure. Mild tricuspid regurgitation. Moderate pulmonary hypertension. Pulmonic Valve The pulmonary valve is normal in structure. There [place] [address] 2 D/M-MODE ECHOCARDIOGRAM Name: LUTHERADAMARISIRASEMA K Room: [address]#: [id number] Admission: 06/12/18 Attend Phys: Josué Dent, Discharge: Date of : 45 Date of Service: 06/14/18 1446 Report #: [id number] valvular regurgitation. Great Vessels The aortic root is normal in size. IVC is normal in size and collapses >50% with inspiration. Pericardium There is no pericardial effusion. <Conclusion> The left ventricle is normal size. There is normal left ventricular wall thickness. Left ventricular systolic function is moderately decreased. LVEF is 35-40%. Transmitral Doppler flow pattern suggests impaired LV relaxation. Mild aortic valve sclerosis. Mild aortic regurgitation. Mild tricuspid regurgitation. Moderate pulmonary hypertension. <ELECTRONICALLY SIGNED> By: Best Singh MD, FACC 06/14/18 1446 1446 1446 Best Singh MD, FACC /INF
--- NOTE | 2018-06-14 19:50 | NUR ---
PT ASSESSMENT CHARTED. ART LINE PLACED. LEVOPHED ON THROUGHOUT THE DAY. TEMPORARY DIALYSIS LINE PLACED IN RIGHT JUGULAR. CRRT STARTED AT 1600. [facility] NOTIFIED FOR A GCS 3.
[2018-06-14 20:48] LABS: MCH 26.2 pg (26.0-34.0)
[2018-06-14 20:50] LABS: HEMATOCRIT 35.1 % (37.0-47.0); HEMOGLOBIN 11.2 gm/dL (12.0-15.0); MCHC 31.9 g/dL (28.0-37.0); MCV 82.1 fL (80.0-100.0); RBC 4.28 mil/uL (4.20-5.00); RDW-CV 18.8 % (10.5-14.5); WBC 25.7 thou/uL (4.0-11.0)
[2018-06-14 20:57] LABS: CREATININE 1.7 mg/dL (0.6-1.3); MAGNESIUM 1.9 mg/dL (1.8-2.4); PHOSPHORUS* 5.2 mg/dL (2.5-4.9); POTASSIUM 3.7 mmol/L (3.5-5.1)
[2018-06-14 23:09] LABS: MYCOPLASMA PNEUMONIA IgG <100 U/mL (0-99); MYCOPLASMA PNEUMONIA IgM <770 U/mL (0-769)
[2018-06-15] VITALS: BP 136/68
[2018-06-15 02:00] VITALS: BP 108/56
[2018-06-15 04:00] VITALS: BP 113/55
[2018-06-15 04:58] LABS: HEMOGLOBIN 11.5 gm/dL (12.0-15.0)
[2018-06-15 05:00] LABS: HEMATOCRIT 35.9 % (37.0-47.0); MCHC 32.1 g/dL (28.0-37.0); MCV 80.9 fL (80.0-100.0); MPV 11.4 fl. (7.2-11.1); NUCLEATED RBCS 3 /100WBC; RBC 4.45 mil/uL (4.20-5.00); RDW-CV 18.8 % (10.5-14.5); WBC 27.3 thou/uL (4.0-11.0)
[2018-06-15 05:02] LABS: PREALBUMIN 5.1 mg/dL (18.0-35.7)
[2018-06-15 05:09] LABS: ALBUMIN 1.7 g/dL (3.4-5.0); CALCIUM 7.4 mg/dL (8.5-10.1); CREATININE 1.3 mg/dL (0.6-1.3); POTASSIUM 3.7 mmol/L (3.5-5.1); TOTAL BILIRUBIN 3.4 mg/dL (<0.1-1.0); TOTAL PROTEIN 3.4 g/dL (6.4-8.2)
[2018-06-15 05:23] LABS: MAGNESIUM 1.8 mg/dL (1.8-2.4); PHOSPHORUS* 4.1 mg/dL (2.5-4.9)
[2018-06-15 05:26] LABS: BE -5.7 mmol/L (-2 to +3); PO2 72.9 mmHg (75.0-100.0); pH 7.345 (7.340-7.450)
[2018-06-15 06:00] VITALS: BP 107/82
--- NOTE | 2018-06-15 06:19 | NUR ---
PT. REMAINS ON CRRT. NO FLUID REMOVAL ORDERED. PT. REMAINS UNRESPONSIVE WITH NO RESPONSE TO PAIN. VERSED/LEVOPHED GTT'S. IVF REMAIN INFUSING. LEFT FEMORAL ARTERIAL LINE REMAINS IN PLACE. [facility] UPDATED ON PT. STATUS THIS A.M. LAB CALLED AT 0623 TO NOTIFY OF A CRITICAL PLATELET COUNT OF 46. WILL NOTIFY PROVIDER. PT. APPEARS COMFORTABLE AT THIS TIME, WILL CONTINUE TO MONITOR.
[2018-06-15 06:23] LABS: PLATELET COUNT* 46 thou/uL (150-400)
[2018-06-15 06:30] LABS: ABSOLUTE MONOCYTES 2.5 thou/uL (0.0-1.2); ABSOLUTE NEUTROPHILS 21.8 thou/uL (1.6-8.1); METAMYELOCYTES 6 %; PLATELET ESTIMATE DECREASED
[2018-06-15 06:31] LABS: ANISOCYTOSIS 2+; MICROCYTES 2+; OVALOCYTES Occasional; TARGET CELLS 1+
[2018-06-15 06:34] LABS: HYPOCHROMASIA 2+
[2018-06-15 08:09] LABS: HEMOGLOBIN 11.1 gm/dL (12.0-15.0); MCHC 31.6 g/dL (28.0-37.0)
[2018-06-15 08:10] LABS: CALCIUM 7.3 mg/dL (8.5-10.1); HEMATOCRIT 35.1 % (37.0-47.0); MAGNESIUM 1.8 mg/dL (1.8-2.4); MCH 25.9 pg (26.0-34.0); MPV 11.6 fl. (7.2-11.1); PHOSPHORUS* 3.8 mg/dL (2.5-4.9); POTASSIUM 3.7 mmol/L (3.5-5.1); RBC 4.28 mil/uL (4.20-5.00); RDW-CV 18.2 % (10.5-14.5); WBC 27.9 thou/uL (4.0-11.0)
[2018-06-15 12:07] VITALS: BP 69/54
[2018-06-15 12:28] LABS: HEMATOCRIT 28.3 % (37.0-47.0); MCH 26.7 pg (26.0-34.0); MCHC 32.3 g/dL (28.0-37.0); MCV 82.5 fL (80.0-100.0); MPV 10.1 fl. (7.2-11.1); RBC 3.42 mil/uL (4.20-5.00); RDW-CV 18.4 % (10.5-14.5); WBC 24.5 thou/uL (4.0-11.0)
[2018-06-15 12:29] LABS: HEMOGLOBIN 9.1 gm/dL (12.0-15.0)
[2018-06-15 12:45] LABS: CALCIUM 7.7 mg/dL (8.5-10.1); MAGNESIUM 1.8 mg/dL (1.8-2.4); PHOSPHORUS* 3.9 mg/dL (2.5-4.9); POTASSIUM 4.4 mmol/L (3.5-5.1)
[2018-06-15 15:08] LABS: HEPATITIS B SURFACE AG Negative (Negative)
--- NOTE | 2018-06-15 15:52 | NUR ---
[facility] DOES NOT THINK ANY ORGANS ARE VIABLE AT THIS TIME AND HAS DECLINED FOR ALL DONATION. FAMILY STILL NOT VISITED THIS AFTERNOON, ANJU WALKER WITH COMFORT CARE ONCE THEY HAVE ARRIVED.
--- NOTE | 2018-06-15 16:08 | NUR ---
CALLED AND LEFT MULTIPLE MESSAGES TO GET CONSENT FOR BLOOD FROM [facility], NO RETURN OF PHONE CALL AT THIS TIME
[2018-06-15 17:44] VITALS: BP 88/54; BP 97/47
--- NOTE | 2018-06-15 19:44 | NUR ---
PATIENT EXTUBATED AT 1930, FAMILY PRESENT AT THIS TIME. COMFORT CARE ORDERS INITIATED. ALL QUESTIONS ANSWERED. PA Pool
--- NOTE | 2018-06-15 20:25 | NUR ---
PATIENT PASSED AT 1930. [address] RENE[address] RENE WILL SIGN CERTIFICATE. FAMILY ASKED TO THROW AWAY ALL CLOTHES AND TOILETRIES THAT PATIENT CAME IN WITH. CHOSE PATIENT TO GO TO [facility] IN [place]. WILL CALL TO HAVE THEM SEBD TEACHER THE BODY.
[2018-06-15 21:10] LABS: HSV 1 DNA Negative (Negative); HSV 2 DNA Positive (Negative)
--- NOTE | 2018-06-15 23:08 | NUR ---
Body dc'd per cart, escorted by security sales consultant.
--- NOTE | 2018-06-16 09:25 | NUR ---
entered onto restraint log 06/16/18 0925.
--- NOTE | 2018-06-16 10:56 | CON ---
[address] [address] CONSULTATION Name: LUTHERIRASEMA K Room: [address] IN M.R.#: [id number] Admission: 06/12/18 Attend Phys: Josué Dent MD Discharge: 06/15/18 Date of : 45 Report #: [id number] THIS REPORT FOR: //name// CC: Josué Lucia NEPHROLOGY CONSULTATION CONSULTING PHYSICIAN: Josué Dent M.D. REASON FOR CONSULTATION: Acute kidney injury. HISTORY OF PRESENT ILLNESS: A 73-year-old female with a history of CHF and COPD, who came in with sepsis and suspected hospital-acquired pneumonia, possibly related to aspiration. She has septic shock with gram negatives and is currently on Levophed as well as antibiotics. She was intubated as she developed acute hypoxic respiratory failure with severe metabolic acidosis with a pH less than 7 and was started on a bicarbonate drip. She has gangrenous toes and Vascular Surgery is involved as well. Urine output has dropped. She has had an art line placed. REVIEW OF SYSTEMS: Constitutional, psych, heme, eyes, ENT, respiratory, cardiac, GI, , endocrine, all negative, except as documented above and as best as can be ascertained from chart review and my discussion with family. PAST MEDICAL HISTORY: COPD, hypertension, history of kyphosis, coronary artery disease and peripheral vascular disease. MEDICATIONS: Reviewed. FAMILY HISTORY: Not pertinent for a 73-year-old female. SOCIAL HISTORY: Lives in a shelter. No active smoking. PHYSICAL EXAMINATION: VITAL SIGNS: Blood pressure is 95/52, pulse 124, respirations 24 and temperature 38.0, T-max 38.3. GENERAL: Intubated and sedated. EYES: Closed. EARS: Externally normal. CARDIOVASCULAR: Tachycardic. LUNGS: Diminished breath sounds. ABDOMEN: Soft. MUSCULOSKELETAL: Gangrenous toes. No substantial pitting edema. NEUROLOGIC: Intubated and sedated. LABORATORY DATA: A pH of 7.097, pCO2 of 39 and bicarbonate 11.8, [place] [address] CONSULTATION Name: IRASEMA SLOAN Room: [address]#: [id number] Admission: 06/12/18 Attend Phys: Josué Dent MD Discharge: 06/15/18 Date of : 45 Report #: [id number] count 27, hemoglobin 12.3 and platelets 114,000. Sodium 141, potassium 5.4, chloride 104, bicarbonate 19, BUN 43, creatinine 2.1, glucose 332 and calcium is 5.9. Lactic acid is about 12, AST is 4513, ALT 923. Albumin 1.3. ASSESSMENT: 1. Acute kidney injury/acute tubular necrosis in the setting of hypotension and shock. She also received intravenous contrast with a CT scan and was receiving Lasix prior to that. CT abdomen is noted. 2. Hyperkalemia with potassium 5.4 on 04/13/2019. 3. Severe metabolic acidosis with a pH less than 7 and then after bicarbonate drip started, pH of 7.097 and a bicarbonate of 12 and lactic acid 11.6, in the setting of gangrenous toes with likely ischemia. 4. Bilateral lower extremity ischemia with gangrenous toes. 5. Hypocalcemia with a calcium of 5.9 on 06/14/2018. 6. Elevated liver functions with an AST of 4513 on 06/14/2018. 7. Chronic kidney disease based on severe right renal atrophy noted on CT scan. On 06/13/2018, creatinine was 1. Left kidney was okay. 8. Yeast in urine. Infectious Disease is following. 9. Gram-negative septic shock. 10. Severe chronic obstructive pulmonary disease. PLAN: 1. She is on Levophed drip. She is also on bicarbonate. We will increase the bicarbonate in the IV fluids. 2. Urine output has diminished. I discussed with family on the phone, both sisters, regarding CRRT. They are uncertain what they want to do, but will make a decision shortly and call back to the nursing station and let the nurses know what their plans are. Informed consent was obtained to proceed with dialysis should they chose to go this route, in which case, a temporary dialysis catheter will be ordered and the patient would be placed on CRRT. 3. We will order intravenous calcium. 4. Case was discussed with Dr. Roa. The patient is critically ill. Thirty-five minutes of patient care time spent. Thank you for requesting my opinion in the care and management of this patient. <ELECTRONICALLY SIGNED> By: Andrey Polanco MD 06/16/18 1056 1145 [id number] Polanco MD /nt
--- NOTE | 2018-06-17 12:50 | CON ---
[address] [address] CONSULTATION Name: IRASEMA SLOAN Room: [address] IN M.R.#: [id number] Admission: 06/12/18 Attend Phys: Josué Dent MD Discharge: 06/15/18 Date of : 45 Report #: [id number] THIS REPORT FOR: //name// CC: Josué Lucia DATE OF SERVICE: 06/15/2018 REASON FOR CONSULTATION: Thrombocytopenia. HISTORY OF PRESENT ILLNESS: A 73-year-old female who has been admitted to the hospital since May. The patient developed acute respiratory failure with septic shock. Currently, she is intubated. She developed left lower lobe pneumonia with septicemia. She has been on antibiotics. After that, she developed oliguric renal failure, currently on SSRT with encephalopathy. Hematology consultation has been obtained due to progressive rapid thrombocytopenia. Upon admission on May, her platelet counts were 125. However, on the , dropped to 46 and later during the day, it was 20. Reviewing her labs, her coagulation studies, her PTT today was 158 with a fibrinogen of 102 and D-dimer 9.3. Per the nursing staff, there was no evidence of bleeding at this point. The patient was intubated and sedated. She is currently on pressors. REVIEW OF SYSTEMS: Unable to be obtained. PAST MEDICAL HISTORY: Per her records, COPD, GERD, coronary artery disease and chronic back pain. MEDICATIONS: Per admission list. ALLERGIES: ADHESIVE TAPE. SOCIAL HISTORY: She is a former smoker. She quit more than 1 year ago. No alcohol or drug abuse. FAMILY HISTORY: Noncontributory. PHYSICAL EXAMINATION: VITAL SIGNS: Today, temperature is 35.6, pulse is 97, respirations 26, blood pressure is 69/54 and SpO2 was 92%. HEENT: The patient was sedated and intubated. LUNGS: Decreased breathing sounds bilaterally. HEART: Tachycardic but regular. S1 and S2 within normal limits. ABDOMEN: Soft and nondistended. EXTREMITIES: [place] [address] CONSULTATION Name: LUTHERIRASEMA K Room: [address]#: [id number] Admission: 06/12/18 Attend Phys: Josué Dent MD Discharge: 06/15/18 Date of : 45 Report #: [id number] LABORATORY DATA: Today, WBC 24.5; hemoglobin 9.1 and platelets today dropped from 46 to the level of 32 and later on twice 20,000. Peripheral blood smear showed polychromasia, aniso microcytosis, some target cells. PT, PTT was 158.5, fibrinogen 102, D-dimer 9.3 and lactic acid 10.2. Creatinine is 1.0. AST is 2239, ALT is , alkaline phosphatase 668, total bilirubin is 3.4 and on June 08, it was 1.3. IMAGING DATA: Ultrasound of the abdomen today showed no focal liver lesions, however, there is cholelithiasis. A chest x-ray showed worsening left basilar infiltrate with a small pleural effusion, unchanged diffuse interstitial opacities compatible with interstitial edema or pneumonitis. CT abdomen showed multifocal lung infiltrates was seen on prior to examination. ASSESSMENT AND PLAN: A 73-year-old female who has been admitted because of septic shock, respiratory failure, renal failure and she had a liver shock, currently on pressors. She developed severe thrombocytopenia, which is most likely due to disseminated intravascular coagulopathy with elevation of her D-dimer and PTT with a low fibrinogen. At this point, the patient had multiorgan failure and her prognosis is very poor at this point, however, in terms of recommendations: 1. We will treat her coagulopathy to keep her platelet count above 50. We will arrange for transfusion if possible. 2. Since her target for fibrinogen above 100, we will check a disseminated intravascular coagulopathy profile every 12 hours. I discussed with nursing that the family may consider with withdrawing care until this decision is made, we will continue supportive transfusion. <ELECTRONICALLY SIGNED> By: Corona Case MD 06/17/18 1250 1739 [id number] Case MD /nt
== END 2018-06-15 19:48 | DRG 871 ==
LOC: M.ERS 08:06 → M.ICU 09:31 → M.TBA-ER 09:31 → M.2W 09:31 → M.ICU 06-13 10:07
PROVIDERS: Family Medicine; Internal Medicine; Internal Medicine Nephrology; Internal Medicine Pulmonary Disease; Specialist
PROC: 5A1945Z Respiratory Ventilation, 24-96 Consecutive Hours (ICD-10-PCS; 2018-06-13)
PROC: 0BH17EZ Insertion of Endotracheal Airway into Trachea, Via Natural or Artificial Opening (ICD-10-PCS; 2018-06-13)
PROC: 5A09357 Assistance with Respiratory Ventilation, Less than 24 Consecutive Hours, Continuous Positive Airway Pressure (ICD-10-PCS; 2018-06-13)
PROC: 4A133B1 Monitoring of Arterial Pressure, Peripheral, Percutaneous Approach (ICD-10-PCS; principal; 2018-06-14)
PROC: 04HY32Z Insertion of Monitoring Device into Lower Artery, Percutaneous Approach (ICD-10-PCS; principal; 2018-06-14)
PROC: 4A133J1 Monitoring of Arterial Pulse, Peripheral, Percutaneous Approach (ICD-10-PCS; principal; 2018-06-14)
PROC: B548ZZA Ultrasonography of Superior Vena Cava, Guidance (ICD-10-PCS; principal; 2018-06-14)
PROC: 02HV33Z Insertion of Infusion Device into Superior Vena Cava, Percutaneous Approach (ICD-10-PCS; principal; 2018-06-14)
PROC: B5181ZA Fluoroscopy of Superior Vena Cava using Low Osmolar Contrast, Guidance (ICD-10-PCS; principal; 2018-06-14)
PROC: 5A1D90Z Performance of Urinary Filtration, Continuous, Greater than 18 hours Per Day (ICD-10-PCS; 2018-06-15)
DX: A41.50 Gram-negative sepsis, unspecified (principal); J18.1 Lobar pneumonia, unspecified organism; N17.0 Acute kidney failure with tubular necrosis; R65.21 Severe sepsis with septic shock; K72.00 Acute and subacute hepatic failure without coma; E43 Unspecified severe protein-calorie malnutrition; J96.01 Acute respiratory failure with hypoxia; G93.41 Metabolic encephalopathy; J44.0 Chronic obstructive pulmonary disease with (acute) lower respiratory infection; J44.1 Chronic obstructive pulmonary disease with (acute) exacerbation; I96 Gangrene, not elsewhere classified; I13.0 Hypertensive heart and chronic kidney disease with heart failure and stage 1 through stage 4 chronic kidney disease, or unspecified chronic kidney disease; G93.40 Encephalopathy, unspecified; E87.4 Mixed disorder of acid-base balance; I42.9 Cardiomyopathy, unspecified; I50.9 Heart failure, unspecified; R73.9 Hyperglycemia, unspecified; E83.51 Hypocalcemia; M89.9 Disorder of bone, unspecified; N18.9 Chronic kidney disease, unspecified; K02.9 Dental caries, unspecified; B37.9 Candidiasis, unspecified; K21.9 Gastro-esophageal reflux disease without esophagitis; D69.6 Thrombocytopenia, unspecified; G89.29 Other chronic pain; M54.9 Dorsalgia, unspecified; M40.209 Unspecified kyphosis, site unspecified; E87.5 Hyperkalemia; I25.10 Atherosclerotic heart disease of native coronary artery without angina pectoris; Z87.891 Personal history of nicotine dependence; Z79.51 Long term (current) use of inhaled steroids; Z79.899 Other long term (current) drug therapy; Z68.23 Body mass index [BMI] 23.0-23.9, adult; Z91.14 Patient's other noncompliance with medication regimen; Z88.8 Allergy status to other drugs, medicaments and biological substances; Z66 Do not resuscitate; Z51.5 Encounter for palliative care